=== PATIENT | female | born 1955 | race Caucasian/White ===

== ENCOUNTER 2016-07-22 10:02 | Emergency (ER) | payer OTHER ==
[~2016-07-22] VITALS: Ht 160 cm; Wt 74.0 kg
[~2016-07-22 10:02] MED LIST: DICY10CA13 PO; MECL25CH PO
[2016-07-22 10:08] VITALS: BP 108/79; PULSE 73; RESP 16; TEMP 98.4; O2SAT 99
[2016-07-22] MEDS ORDERED: B12-1CHW CHEW (10:21)
--- NOTE | 2016-07-22 10:29 | PD ---
HPI Chief Complaint: Cold / Flu Symptoms Time Seen by Provider: 10:20 Travel History International Travel<30 days: No Contact w/Intl Traveler<30days: No Traveled to known affect area: No History of Present Illness HPI This patient complains of runny nose congestion cough. She is a smoker. Not short of breath. Symptoms severity is mild PFSH Past Medical History Cardiovascular Problems: Yes (MURMUR) Hepatitis: Yes (CHILDHOOD) ?: Not Menopausal: Yes : 2 Para: 2 Past Surgical History Cholecystectomy: Yes Social History Alcohol Use: Yes Tobacco Use: Yes (1 PPD) Substance Use: No Allergies-Medications (Allergen,Severity, Reaction): Coded Allergies: Sulfa (Verified Allergy, Severe, Anaphylaxis, 01/22/16) Bee Sting (Verified Allergy, Mild, SWELLING, 01/22/16) Codeine (Verified Adverse Reaction, Severe, ITCHING, 01/22/16) Reported Meds & Prescriptions Reported Meds & Active Scripts Active Reported [id number] (Methylcobalamin) 1 Mg Chew 1 Mg CHEW DAILY Review of Systems HENT: No: Headaches Cardiovascular: No: Chest Pain or Discomfort Respiratory: Positive: Cough, No: Shortness of Breath Physical Exam Narrative GENERAL: Well-nourished, well-developed patient in no apparent distress. SKIN: Warm and dry. HEAD: Atraumatic. Normocephalic. EYES: Pupils equal and round. No scleral icterus. No injection or drainage. ENT: No nasal bleeding or discharge. Mucous membranes pink and moist. NECK: Trachea midline. No JVD. CARDIOVASCULAR: Regular rate and rhythm. No murmur appreciated. RESPIRATORY: No accessory muscle use. Clear to auscultation. Breath sounds equal bilaterally. GASTROINTESTINAL: Abdomen soft, non-tender, nondistended. Hepatic and splenic margins not palpable. MUSCULOSKELETAL: No obvious deformities. No clubbing. No cyanosis. No edema. NEUROLOGICAL: Awake and alert. No obvious cranial nerve deficits. Motor grossly within normal limits. Normal speech. PSYCHIATRIC: Appropriate mood and affect; insight and judgment normal. Data Data Last Documented VS Vital Signs Date Time Temp Pulse Resp B/P Pulse Ox O2 Delivery O2 Flow Rate FiO2 07/22/16 10:21 17 98 Room Air 07/22/16 10:08 98.4 73 108/79 [facility] Medical Decision Making Medical Screen Exam Complete: Yes Emergency Medical Condition: Yes Medical Record Reviewed: Yes Differential Diagnosis Bronchitis, URI, flu syndrome Narrative Course I have reviewed the patient's electronic medical record. Presentation is most consistent with an acute viral URI. Supportive care discussed. No indication for antibiotics Diagnosis Primary Impression: Acute viral bronchitis Additional Instructions: The patient was advised to follow up with their physician and return if they worsen. Med/Other Pt SpecificInfo: Other Disposition: 01 DISCHARGE HOME Condition: Stable Ferny Donaldson MD Jul 22, 2016 10:29
== END 2016-07-22 10:39 | disposition home or self-care (01) ==
LOC: PHED 10:02
DX: J20.8 Acute bronchitis due to other specified organisms (principal); B34.9 Viral infection, unspecified; F17.210 Nicotine dependence, cigarettes, uncomplicated
CPT/HCPCS: 99283

== ENCOUNTER 2017-06-24 08:21 | Emergency (ER) | payer OTHER ==
[~2017-06-24] VITALS: Ht 160 cm; Wt 71.5 kg
[~2017-06-24 08:21] MED LIST changes: +B12-1CHW CHEW; -DICY10CA13 PO; -MECL25CH PO
[2017-06-24 08:27] VITALS: BP 134/69; PULSE 89; RESP 16; TEMP 97.6; O2SAT 98
[2017-06-24] MEDS ORDERED: VITA10002 PO (08:42)
[2017-06-24] MEDS ORDERED: MULT-65 PO (08:42)
[2017-06-24] MEDS ORDERED: SODIUM CHLORIDE 0.9% FLUSH 10 ML FLUSH IV FLUSH PRN (08:45)
--- NOTE | 2017-06-24 08:50 | PD ---
HPI Chief Complaint: Abdominal Pain Time Seen by Provider: 08:44 Travel History International Travel<30 days: No Contact w/Intl Traveler<30days: No Traveled to known affect area: No History of Present Illness HPI c/o diffuse abd pain, 6/10, crampy, nonrad, assoc with diarrhea and some nausea over past 2 days. denies any alleviating/aggravating factors. denies assoc factors of fever/finn/cp/backpain/ pcp harshad dumont all:sulfa psh:gb pmhx: diverticulitis, PFSH Past Medical History Cardiovascular Problems: Yes (MURMUR) Hepatitis: Yes (CHILDHOOD) Tetanus Vaccination: Unknown Influenza Vaccination: Yes ?: Not Menopausal: Yes : 2 Para: 2 Past Surgical History Cholecystectomy: Yes Social History Alcohol Use: Yes Tobacco Use: Yes (/2 PPD) Substance Use: No Allergies-Medications (Allergen,Severity, Reaction): Coded Allergies: Sulfa (Sulfonamide Antibiotics) (Unverified Allergy, Severe, Anaphylaxis, 06/24/17) bee venom protein (honey bee) (Unverified Allergy, Mild, SWELLING, ) codeine (Unverified Adverse Reaction, Severe, ITCHING, 06/24/17) Reported Meds & Prescriptions Reported Meds & Active Scripts Active Reported Multi-Vitamin Daily (Multiple Vitamin) 1 Tab Tab 1 Tab PO DAILY Vitamin B-12 (Cyanocobalamin) 1,000 Mcg Tab 1,000 Mcg PO DAILY Review of Systems Except as stated in HPI: all other systems reviewed are Neg General / Constitutional: No: Fever Eyes: No: Visual changes HENT: No: Headaches Cardiovascular: No: Chest Pain or Discomfort Respiratory: No: Shortness of Breath Gastrointestinal: Positive: Nausea, Vomiting, Diarrhea, Abdominal Pain Genitourinary: No: Dysuria Musculoskeletal: No: Pain Skin: No Rash Neurologic: No: Weakness Psychiatric: No: Depression Endocrine: No: Polydipsia Hematologic/Lymphatic: No: Easy Bruising Physical Exam Narrative GENERAL: SKIN: Warm and dry. HEAD: Atraumatic. Normocephalic. EYES: Pupils equal and round. No scleral icterus. No injection or drainage. ENT: No nasal bleeding or discharge. Mucous membranes pink and moist. NECK: Trachea midline. No JVD. CARDIOVASCULAR: Regular rate and rhythm. RESPIRATORY: No accessory muscle use. Clear to auscultation. Breath sounds equal bilaterally. GASTROINTESTINAL: Abdomen soft, non-tender, nondistended. MUSCULOSKELETAL: Extremities without clubbing, cyanosis, or edema. No obvious deformities. NEUROLOGICAL: Awake and alert. No obvious cranial nerve deficits. Motor grossly within normal limits. Five out of 5 muscle strength in the arms and legs. Normal speech. PSYCHIATRIC: Appropriate mood and affect; insight and judgment normal. Data Data Last Documented VS Vital Signs Date Time Temp Pulse Resp B/P (MAP) Pulse Ox O2 Delivery O2 Flow Rate FiO2 06/24/17 09:04 87 18 107/58 (74) 96 Room Air 06/24/17 08:27 97.6 Orders Orders Complete Blood Count With Diff (06/24/17 08:43) Comprehensive Metabolic Panel (06/24/17 08:43) Urinalysis - C+S If Indicated (06/24/17 08:43) Iv Access Insert/Monitor (06/24/17 08:43) Oximetry (06/24/17 08:43) Lipase (06/24/17 08:43) Prothrombin Time / Inr (Pt) (06/24/17 08:45) Act Partial Throm Time (Ptt) (06/24/17 08:45) Ct Abd/Pel W/O Iv Contrast (06/24/17 08:45) Ecg Monitoring (06/24/17 08:45) NPO (06/24/17 08:45) Sodium Chloride 0.9% Flush (Ns Flush) (06/24/17 08:45) Electrocardiogram (06/24/17 08:45) Ckmb (Isoenzyme) Profile (06/24/17 08:55) Troponin I (06/24/17 08:55) Labs Laboratory Tests Test 06/24/17 08:55 White Blood Count 10.9 TH/MM3 Red Blood Count 4.94 MIL/MM3 Hemoglobin 15.8 GM/DL Hematocrit 47.4 % Mean Corpuscular Volume 96.1 FL Mean Corpuscular Hemoglobin 31.9 PG Mean Corpuscular Hemoglobin Concent 33.2 % Red Cell Distribution Width 12.2 % Platelet Count 233 TH/MM3 Mean Platelet Volume 7.5 FL Neutrophils (%) (Auto) 75.0 % Lymphocytes (%) (Auto) 18.2 % Monocytes (%) (Auto) 5.2 % Eosinophils (%) (Auto) 1.3 % Basophils (%) (Auto) 0.3 % Neutrophils # (Auto) 8.2 TH/MM3 Lymphocytes # (Auto) 2.0 TH/MM3 Monocytes # (Auto) 0.6 TH/MM3 Eosinophils # (Auto) 0.1 TH/MM3 Basophils # (Auto) 0.0 TH/MM3 CBC Comment DIFF FINAL Differential Comment Prothrombin Time 10.0 SEC Prothromb Time International Ratio 1.0 RATIO Activated Partial Thromboplast Time 23.9 SEC Urine Collection Type CLEAN CATCH Urine Color DARK-YELLOW Urine Turbidity SLIGHTY CLOUDY Urine pH 5.0 Urine Specific [place] 1.030 Urine Protein TRACE mg/dL Urine Glucose (UA) NEG mg/dL Urine Ketones 15 mg/dL Urine Occult Blood NEG Urine Nitrite NEG Urine Bilirubin MOD Urine Leukocyte Esterase NEG Urine WBC 3-5 /hpf Urine Squamous Epithelial Cells 6-8 /hpf Urine Amorphous Sediment SMALL Urine Bacteria FEW /hpf Urine Hyaline Casts 0-2 /lpf Microscopic Urinalysis Comment CULT NOT INDICATED Blood Urea Nitrogen 15 MG/DL Creatinine 0.65 MG/DL Random Glucose 132 MG/DL Total Protein 7.9 GM/DL Albumin 3.8 GM/DL Calcium Level 9.1 MG/DL Alkaline Phosphatase 81 U/L Aspartate Amino Transf (AST/SGOT) 22 U/L Alanine Aminotransferase (ALT/SGPT) 26 U/L Total Bilirubin 1.0 MG/DL Sodium Level 139 MEQ/L Potassium Level 3.4 MEQ/L Chloride Level 103 MEQ/L Carbon Dioxide Level 27.5 MEQ/L Anion Gap 9 MEQ/L Estimat Glomerular Filtration Rate 93 ML/MIN Total Creatine Kinase 54 U/L Troponin I LESS THAN 0.02 NG/ML Lipase 158 U/L [facility] Medical Decision Making Medical Screen Exam Complete: Yes Emergency Medical Condition: Yes Medical Record Reviewed: Yes Interpretation(s) nsr 75, pac's, lae, no stemi pattern Differential Diagnosis enteritis v pancreatitis v viral stomach flu v eletrolyte abnl Narrative Course neg flu, nl electrolytes, nl pancreas/kidney/liver functions. ct c/w enteritis Diagnosis Primary Impression: enteritis Patient Instructions: Enteritis (ED), General Instructions Scripts Tramadol (Ultram) 50 Mg Tab 50 MG PO Q4H Y for PAIN, #12 TAB 0 Refills Prov: Alfred Vargas MD 06/24/17 Ciprofloxacin (Cipro) 500 Mg Tab 500 MG PO BID for Infection for 3 Days, #6 TAB 0 Refills Prov: Alfred Vargas MD 06/24/17 Metronidazole (Flagyl) 500 Mg Tab 500 MG PO TID for Infection for 7 Days, #21 TAB 0 Refills Prov: Alfred Vargas MD 06/24/17 Ondansetron Odt (Zofran Odt) 4 Mg Tab 4 MG SL Q6HR Y for Nausea/Vomiting, #20 TAB 0 Refills Prov: Alfred Vargas MD 06/24/17 Disposition: 01 DISCHARGE HOME Condition: Stable Alfred Vargas MD Jun 24, 2017 08:50
[2017-06-24 08:57] VITALS: O2SAT 97
[2017-06-24 09:02] LABS: AUTOMATED NEUTROPHIL # 8.2 TH/MM3 (1.8-7.7); BASOPHIL % 0.3 % (0.0-2.0); EOSINOPHIL # 0.1 TH/MM3 (0-0.4); EOSINOPHIL % 1.3 % (0.0-4.0); HEMATOCRIT 47.4 % (35.0-46.0); HEMOGLOBIN 15.8 GM/DL (11.6-15.3); LYMPH % 18.2 % (9.0-44.0); MEAN CELL VOLUME 96.1 FL (80.0-100.0); MEAN CORPUSCULAR HEMOGLOBIN 31.9 PG (27.0-34.0); MEAN CORPUSCULAR HGB CONC 33.2 % (32.0-36.0); MEAN PLATELET VOLUME 7.5 FL (7.0-11.0); MONO % 5.2 % (0.0-8.0); MONOCYTE # 0.6 TH/MM3 (0-0.9); PLATELET COUNT 233 TH/MM3 (150-450); RED BLOOD COUNT 4.94 MIL/MM3 (4.00-5.30); RED CELL DISTRIBUTION WIDTH 12.2 % (11.6-17.2); WHITE BLOOD COUNT 10.9 TH/MM3 (4.0-11.0)
[2017-06-24 09:04] VITALS: BP 107/58; PULSE 87; RESP 18; O2SAT 96
[2017-06-24 09:13] LABS: CHLORIDE 103 MEQ/L (98-107); SODIUM (NA) 139 MEQ/L (136-145)
[2017-06-24 09:17] LABS: BILIRUBIN, URINE MOD (NEG); BLOOD, URINE NEG (NEG); GLUCOSE,URINE NEG (NEG); KETONE, URINE 15 mg/dL (NEG); NITRITE,URINE NEG (NEG); URINE LEUKOCYTE ESTERASE NEG (NEG)
[2017-06-24 09:18] LABS: ALBUMIN 3.8 GM/DL (3.4-5.0); BICARBONATE 27.5 MEQ/L (21.0-32.0); BLOOD UREA NITROGEN 15 MG/DL (7-18); CALCIUM 9.1 MG/DL (8.5-10.1); GLUCOSE,RANDOM 132 MG/DL (74-106); LIPASE 158 U/L (73-393)
[2017-06-24 09:20] VITALS: BP 118/91; PULSE 65; RESP 18; O2SAT 96
[2017-06-24 09:21] LABS: ALT (GPT) 26 U/L (10-53); AST (GOT) 22 U/L (15-37); CREATININE 0.65 MG/DL (0.50-1.00); GLOMERULAR FILTRATION RATE 93 ML/MIN (>89)
[2017-06-24 09:23] LABS: TOTAL PROTEIN 7.9 GM/DL (6.4-8.2); URINE COLOR DARK-YELLOW (YELLW/STRAW)
[2017-06-24 09:24] LABS: ALKALINE PHOSPHATASE 81 U/L (45-117); AMORPHOUS SEDIMENT, URINE SMALL; BACTERIA, URINE FEW /hpf; HYALINE CAST, URINE 0-2 /lpf (RARE)
--- NOTE | 2017-06-24 09:24 | RADRPT ---
EXAM DATE/TIME: 06/24/2017 09:03 [place] COMPARISON: No previous studies available for comparison. INDICATIONS : Diffuse abdominal pain since yesterday. Evaluate for renal calculi. ORAL CONTRAST: No oral contrast ingested. RADIATION DOSE: 18.95 CTDIvol (mGy) MEDICAL HISTORY : None SURGICAL HISTORY : Cholecystectomy. ENCOUNTER: Initial ACUITY: 2 days PAIN SCALE: 6/10 LOCATION: abdomen TECHNIQUE: Volumetric scanning of the abdomen and pelvis was performed. Using automated exposure control and ad justment of the mA and/or kV according to patient size, radiation dose was kept as low as reasonably achievable to obtain optimal diagnostic quality images. DICOM format image data is available electro nically for review and comparison. FINDINGS: LOWER LUNGS: The visualized lower lungs are clear. LIVER: Homogeneous density without lesion. There is no dilation of the biliary tree. The patient is status post cholecystectomy. SPLEEN: Normal size without lesion. PANCREAS: Within normal limits. KIDNEYS: Normal in size and shape. There is no mass, stone, or hydronephrosis. ADRENAL GLANDS: Within normal limits. VASCULAR: There is no aortic aneurysm. Scattered atherosclerotic calcifications are seen. BOWEL/MESENTERY: There is thickening of the distal small bowel and terminal ileum region. The thickening extends over at least a 3 cm length. There is inflammatory change in the surrounding mesentery in this region in t he right lower quadrant. There are some minimally prominent lymph nodes in the right lower quadrant. The appendix is seen and appears normal. The appendix is not thickened and is filled with air. There are colonic diverticula. The colon appears otherwise grossly normal. There is a small amount of ascit es seen in the lower pelvis and around the liver. ABDOMINAL WALL: Within normal limits. RETROPERITONEUM: There is no lymphadenopathy. BLADDER: No wall thickening or mass. REPRODUCTIVE: Within normal limits. INGUINAL: There is no lymphadenopathy or hernia. MUSCULOSKELETAL: Within normal limits for patient age. CONCLUSION: Thickening of the distal small bowel likely related to enteritis. There is surrounding inflammatory c hange in the mesentery and a mild amount of ascites present. Crohn's disease could have this appearan ce. Philip Valadez MD on June 24, 2017 at 9:14 Board Certified Radiologist. This report was verified electronically.
[2017-06-24 09:26] LABS: TROPONIN I LESS THAN 0.02 NG/ML (0.02-0.05)
[2017-06-24] MEDS ORDERED: CIPR-9 PO (09:56)
[2017-06-24] MEDS ORDERED: ZOFR4TAB3 SL (09:56)
[2017-06-24] MEDS ORDERED: TRAM50 PO (09:56)
[2017-06-24] MEDS ORDERED: METR-1 PO (09:56)
--- NOTE | 2017-06-24 12:39 | EKG ---
Date Performed: 06/24/2017 Time Performed: 09:00:12 PTAGE: 62 years EKG: Sinus rhythm WITH OCCASIONAL SUPRAVENTRICULAR PREMATURE COMPLEXES POSSIBLE LEFT ATRIAL ENLARGEMENT MILD ST DEPRES PORFIRIO ABNORMAL ECG PREVIOUS TRACING : 01/22/2016 13.28 Compared to the previous tracing, rate has increased and p robable ST/T wave changes now noted DOCTOR: Brandon Perez Interpretating Date/Time 06/24/2017 12:38:14
== END 2017-06-24 10:29 | disposition home or self-care (01) ==
LOC: PHED 08:21
DX: K52.9 Noninfective gastroenteritis and colitis, unspecified (principal); R94.31 Abnormal electrocardiogram [ECG] [EKG]; F17.210 Nicotine dependence, cigarettes, uncomplicated
CPT/HCPCS: 74176; 80053; 81001; 82550; 83690; 84484; 85025; 85610; 85730; 93005; 99284